=== PATIENT | male | born 1980 | race Caucasian/White ===

== ENCOUNTER 2022-10-08 18:45 | Emergency (ER) | payer BC ==
[~2022-10-08] VITALS: Ht 157.5 cm; Wt 76.7 kg
[2022-10-08 19:17] VITALS: TEMP 98.1
[2022-10-08] MEDS ORDERED: KETOROLAC TROMETHAMINE INJ 30 MG/ML VIAL IM ONE (21:30)
[2022-10-08] MEDS ORDERED: KETOROLAC TROMETHAMINE INJ 30 MG/ML VIAL ONE (21:33)
[2022-10-08] MEDS ORDERED: CYCL5TAB PO (21:48)
[2022-10-08] MEDS ORDERED: KETO10TA2 PO (21:48)
[2022-10-08 23:11] VITALS: BP 138/84; O2SAT 98
== END 2022-10-08 23:11 | disposition home or self-care (01) ==
LOC: ER 18:53
DX: M79.602 Pain in left arm (principal); M79.605 Pain in left leg; R07.89 Other chest pain; M54.2 Cervicalgia; M54.50 Low back pain, unspecified; V89.2XXA Person injured in unspecified motor-vehicle accident, traffic, initial encounter; Y93.89 Activity, other specified; Y92.89 Other specified places as the place of occurrence of the external cause; Y99.8 Other external cause status
CPT/HCPCS: 99284; 72125; 96372; 73080 ×2; 73090; 73130; 73060; 73030; 71250; 72131; J1885